=== PATIENT | female | born 1945 | race Caucasian/White ===

== ENCOUNTER → 2017-01-06 | Outpatient (CLI) | payer OTHER, MEDICARE | LOC: FIMAGING 12:59 | PROVIDERS: ATTEND Physical Medicine & Rehabilitation Pain Medicine | DX: M51.36 Other intervertebral disc degeneration, lumbar region (principal); M12.88 Other specific arthropathies, not elsewhere classified, other specified site; M43.16 Spondylolisthesis, lumbar region; M48.06 Spinal stenosis, lumbar region; M99.73 Connective tissue and disc stenosis of intervertebral foramina of lumbar region ==

== ENCOUNTER → 2017-11-10 | Outpatient (CLI) | payer OTHER, MEDICARE | LOC: BMCIMAGING 09:38 | PROVIDERS: ATTEND Internal Medicine | DX: R05 Cough (principal); R09.82 Postnasal drip; R91.8 Other nonspecific abnormal finding of lung field ==

== ENCOUNTER 2017-11-12 00:17 | Emergency (ER) | payer OTHER, MEDICARE ==
[2017-11-12 00:22] VITALS: RESP 16
--- NOTE | 2017-11-12 00:29 | CPEKG ---
Heart Rate: 63 RR Interval: 952 P-R Interval: 136 QRSD Interval: 68 QT Interval: 424 QTC Interval: 435 P Angel [place]: 53 QRS [place]: 65 T Wave [place]: 64 EKG Severity - NORMAL ECG - EKG Impression: SINUS RHYTHM Electronically Signed By: Griselda Kendrick 13-Nov-2017 05:52:47
[2017-11-12 00:43] LABS: PLATELET COUNT 147 10^3/uL (150-400)
--- NOTE | 2017-11-12 01:22 | EDPHY ---
H & P Stated Complaint: possible seizure Time Seen by Provider: 11/12/17 00:59 HPI/ROS: HPI The patient presents with concern for possible seizure. The patient went to bed at about 9:00 p.m. Tonight and that 11:00 p.m. Her heard her making a whimpering noise. He then saw her flailing and shaking her upper extremities and legs in a non rhythmic manner. This lasted for about 3-4 minutes, then she seems sleepy for several minutes and then return to her usual self. She did not have any oral trauma or incontinence. She had no prior history of seizure. She has been more sleepy than usual over the last several weeks, sleeping up to 18 hr a day. Her fluoxetine dose was increased yesterday because of this from 40 mg to 60 mg. She has also had a cough for the last 2 weeks and is taking a course of Keflex for URI. She has also been taking some sort of decongestant or antihistamine, her does not recall the name. She had a chest x-ray performed which was normal. She has not had any traumatic injuries.. REVIEW OF SYSTEMS Constitutional: No fever, no chills. Eyes: No discharge. ENT: No sore throat. Cardiovascular: No chest pain, no palpitations. Respiratory: No cough, no shortness of breath. Gastrointestinal: No abdominal pain, no vomiting. Genitourinary: No hematuria. Musculoskeletal: No back pain. Skin: No rashes. Neurological: No headache. PMHx: History of Alzheimer's dementia, depression Soc Hx: Lives at home with her PHYSICAL General Appearance: Alert, no distress Eyes: Pupils equal and round no pallor or injection ENT, Mouth: Mucous membranes moist Respiratory: There are no retractions, lungs are clear to auscultation Cardiovascular: Regular rate and rhythm Gastrointestinal: Abdomen is soft and non-tender, no masses, bowel sounds normal Neurological: Alert, cranial nerves 2-12 intact, 5/5 strength in upper and lower extremities which is symmetric Skin: Warm and dry, no rashes Musculoskeletal: Neck is supple non tender Extremities: symmetrical, full range of motion Psychiatric: There is no agitation Source: Patient, EMS Exam Limitations: Physical impairment - Personal History Current Tetanus Diphtheria and Acellular Pertussis (TDAP): Yes - Medical/Surgical History Hx Asthma: No Hx Chronic Respiratory Disease: No Hx Diabetes: No Hx Cardiac Disease: No Hx Renal Disease: No Hx Cirrhosis: No Hx Alcoholism: No Hx HIV/AIDS: No Hx Splenectomy or Spleen Trauma: No Other PMH: PMH:Alzheimers, BREAST CANCER, HERNIATED DISC,. PSH: C-SECTIONS, BUNIONECTOMIES - Social History Smoking Status: Never smoked Constitutional: Initial Vital Signs Temperature (C) 36.8 C 11/12/17 00:20 Heart Rate 63 11/12/17 00:20 Respiratory Rate 16 11/12/17 00:20 Blood Pressure 145/86 H 11/12/17 00:20 O2 Sat (%) 94 11/12/17 00:20 O2 Delivery Mode Room Air Allergies/Adverse Reactions: No Known Allergies Allergy (Unverified 11/12/17 00:19) Home Medications: Medication Instructions Recorded B6 02/27/10 CALCIUM CITRATE 02/27/10 FLAXSEED OIL 02/27/10 Gluc Ramirez/Chondro 02/27/10 Simvastatin 02/27/10 VITAMIN D 02/27/10 Aricept 06/17/16 Cephalexin [Keflex (RX)] 500 mg PO TID #30 cap 06/17/16 Namenda 10 mg 06/17/16 Prozac 10 MG (*) 06/17/16 Medical Decision Making - Diagnostics EKG Interpretation: EKG: Complete interpretation has been separately recorded in the [facility] archive. Summary impression: Normal sinus rhythm Imaging Results: CT scan of head without contrast demonstrates no acute intracranial pathology, discussed with the radiologist flight operation coordinator. Chest x-ray two views shows no obvious infiltrate, unchanged from prior x-ray dated a few days ago. This was interpreted by me, radiology interpretation is pending. Imaging: Discussed imaging studies w/ call manager Radiologist, I viewed and interpreted images myself Differential Diagnosis: This is a 72-year-old female who has Alzheimer's dementia, depression, who lives at home with her , who is brought in by ambulance for a seizure like episode which occurred at 11:00 p.m. Tonight, lasting for several minutes, now resolved. There was a very brief period after this episode where she was tired, however recovered fairly quickly. This shaking activity was not rhythmic , though the patient was not responsive during it. She is on some new medications, however these are unlikely to cause seizures. She could have electrolyte disturbance, intracranial hemorrhage, possible infection. In the emergency department, I met the paramedics at the bedside to obtain their report. The patient seems to be at her baseline. The patient's arrived and I interviewed him separately. Labs were checked and were relatively unremarkable except for a transaminitis of unclear significance. CT scan of head was normal. Chest x-ray looked unchanged from previous. The patient had no ongoing episodes. UA was also normal. She did receive a fluid bolus for presumed volume depletion. I have offered her admission to the hospital, however she strongly prefers to go home and given her Alzheimer's dementia I feel it may be best for her to be in a familiar environment during this time. She is followed by primary care and Neurology and I have advised her to follow up with both of their providers. She could have possibly had a seizure. Her also reports that she occasionally has very vivid dreams, does sleep walk at times and this could be somewhat related. - Data Points Laboratory Results: Laboratory Results 11/12/17 00:20 11/12/17 00:20 11/12/17 11/12/17 11/12/17 03:11 00:20 00:20 WBC 4.09 10^3/uL 10^3/uL (3.80-9.50) RBC 4.37 10^6/uL 10^6/uL (4.18-5.33) Hgb 13.5 g/dL g/dL (12.6-16.3) Hct 41.2 % % (38.0-47.0) MCV 94.3 fL fL (81.5-99.8) MCH 30.9 pg pg (27.9-34.1) MCHC 32.8 g/dL g/dL (32.4-36.7) RDW 12.2 % % (11.5-15.2) Plt Count 147 10^3/uL L 10^3/uL (150-400) MPV 12.4 fL H fL (8.7-11.7) Neut % (Auto) 57.8 % % (39.3-74.2) Lymph % (Auto) 29.3 % % (15.0-45.0) Mobile % (Auto) 11.0 % % (4.5-13.0) Eos % (Auto) 1.2 % % (0.6-7.6) Baso % (Auto) 0.2 % L % (0.3-1.7) Nucleat RBC Rel Count 0.0 % % (0.0-0.2) Absolute Neuts (auto) 2.36 10^3/uL 10^3/uL (1.70-6.50) Absolute Lymphs (auto) 1.20 10^3/uL 10^3/uL (1.00-3.00) Absolute Monos (auto) 0.45 10^3/uL 10^3/uL (0.30-0.80) Absolute Eos (auto) 0.05 10^3/uL 10^3/uL (0.03-0.40) Absolute Basos (auto) 0.01 10^3/uL L 10^3/uL (0.02-0.10) Absolute Nucleated RBC 0.00 10^3/uL 10^3/uL (0-0.01) Immature Gran % 0.5 % % (0.0-1.1) Immature Gran # 0.02 10^3/uL 10^3/uL (0.00-0.10) Sodium 141 mEq/L mEq/L (135-145) Potassium 4.5 mEq/L mEq/L (3.5-5.2) Chloride 103 mEq/L mEq/L (97-110) Carbon Dioxide 29 mEq/l mEq/l (22-31) Anion Gap 9 mEq/L mEq/L (8-16) BUN 20 mg/dL mg/dL (7-23) Creatinine 0.8 mg/dL mg/dL (0.6-1.0) Estimated GFR > 60 Glucose 83 mg/dL mg/dL (70-100) Calcium 8.1 mg/dL L mg/dL (8.5-10.4) Total Bilirubin 0.3 mg/dL mg/dL (0.1-1.4) AST 65 IU/L H IU/L (14-46) ALT 57 IU/L H IU/L (9-52) Alkaline Phosphatase 65 IU/L IU/L (38-126) Total Protein 5.6 g/dL L g/dL (6.3-8.2) Albumin 3.5 g/dL g/dL (3.5-5.0) Urine Color YELLOW Urine Appearance CLEAR Urine pH 6.0 (5.0-7.5) Ur Specific Jakin 1.014 (1.002-1.030) Urine Protein NEGATIVE (NEGATIVE) Urine Ketones NEGATIVE (NEGATIVE) Urine Blood NEGATIVE (NEGATIVE) Urine Nitrate NEGATIVE (NEGATIVE) Urine Bilirubin NEGATIVE (NEGATIVE) Urine Urobilinogen NEGATIVE EU EU (0.2-1.0) Ur Leukocyte Esterase NEGATIVE (NEGATIVE) Urine Glucose NEGATIVE (NEGATIVE) Medications Given: Discontinued Medications Sodium Chloride (Ns) 1,000 mls @ 0 mls/hr IV ONCE ONE; Wide Open PRN Reason: Protocol Stop: 11/12/17 02:03 Last Admin: 11/12/17 02:04 Dose: 1,000 mls Departure - Departure Disposition: Home, Routine, Self-Care Clinical Impression: Transaminitis, Seizure-like activity Condition: Good Instructions: New-Onset Seizure in Adults (ED) Additional Instructions: You may have had a seizure today. Because of this, make sure to drink plenty of fluids and get rest. You should avoid the antihistamine use been taking if possible. Please follow-up with Dr. Owens. If you have another seizure, you need to come back to the emergency department Referrals: Tiffanie Flores MD [Primary Care Provider] - As per Instructions Beck Owens MD [Medical Doctor] - As per Instructions
[2017-11-12] MEDS ORDERED: NS 1,000 ML IV ONE (02:02)
[2017-11-12 04:07] VITALS: BP 125/80; PULSE 68; TEMP 98.2; O2SAT 96
== END 2017-11-12 04:06 | disposition home or self-care (01) ==
LOC: EDUNIT#
DX: R56.9 Unspecified convulsions (principal); R74.0 Nonspecific elevation of levels of transaminase and lactic acid dehydrogenase [LDH]; G30.9 Alzheimer's disease, unspecified; E86.9 Volume depletion, unspecified; Z85.3 Personal history of malignant neoplasm of breast

== ENCOUNTER → 2018-04-16 | Outpatient (CLI) | payer OTHER, MEDICARE | LOC: FIMAGING 13:11 | PROVIDERS: ATTEND Internal Medicine | DX: Z12.31 Encounter for screening mammogram for malignant neoplasm of breast (principal); Z85.3 Personal history of malignant neoplasm of breast; Z13.820 Encounter for screening for osteoporosis; Z78.0 Asymptomatic menopausal state; M85.88 Other specified disorders of bone density and structure, other site ==

== ENCOUNTER → 2018-10-11 | Outpatient (CLI) | payer OTHER | LOC: BMCIMAGING 11:02 | PROVIDERS: ATTEND Internal Medicine | DX: Z11.1 Encounter for screening for respiratory tuberculosis (principal); F03.90 Unspecified dementia, unspecified severity, without behavioral disturbance, psychotic disturbance, mood disturbance, and anxiety; I70.0 Atherosclerosis of aorta ==

== ENCOUNTER 2018-11-12 19:27 | Inpatient (IN) | payer OTHER ==
--- NOTE | 2018-11-12 19:50 | EDPHY ---
General Time Seen by Provider: 11/12/18 19:50 Narrative: CLINICAL IMPRESSION: Fever, pneumonia ASSESSMENT/PLAN: Patient is a 73-year-old female with late stage Alzheimer's present with her , presents with shaking chills and fever. Patient with mild temperature on arrival, also noted to be mildly tachycardic. Minimal history obtained from patient secondary to late stage Alzheimer's, history obtained from . An ECG was obtained which revealed sinus rhythm at a rate of 91, nonspecific ST changes; reviewed by myself and Dr. Garcias. She was noted to be mildly tachycardic on arrival, this normalized after 1 L of normal saline. Lactate was 1.6, no evidence of sepsis. CBC revealed leukocytosis of 14.5. Metabolic panel is grossly normal. Influenza swab negative. Chest x-ray reveals new right lower lobe pneumonia. Blood cultures were obtained, urinalysis has been ordered however still pending. Findings today suggestive of pneumonia, patient was given Rocephin and azithromycin in the emergency department. She will be admitted to the hospitalist service for further observation and management. I spoke directly with Dr. Figueroa who will be the admitting physician. The patient remained hemodynamically stable, her oxygen saturation remained in the low 90s without evidence of hypoxia or respiratory distress. Prior to transfer to the floor, the patient is comfortable appearing, no acute distress. DIFFERENTIAL DX: Adult fever including but not limited to viral syndromes including influenza, urinary tract infection, pneumonia and sepsis. ED COURSE: 1999: Case discussed with Dr. Garcias. 2002: Urine culture from 11/05/2018 reviewed, no significant growth. 2231: Still awaiting call back from the hospitalist service for admission. CHIEF COMPLAINT: Shaking chills, fever HPI: Patient is a 73-year-old female with late stage Alzheimer's present with her , presents with shaking chills and fever. Patient resides at [facility], saw her yesterday and she was at her baseline. Per nursing staff the patient had a restless night of sleep, she took a nap today and reportedly was doing well. He came to the facility around 5:00 p.m. When she started shaking suddenly at dinner. They took her temperature and she was noted to have a fever. Patient has been denies any recent runny nose, congestion or cough. He does endorse that she was diagnosed with a urinary tract infection last Thursday and has completed a course of antibiotic therapy. She has not been complaining of any abdominal pain, he is unsure of her bowel movements status. He reports that she is otherwise normally very healthy and active despite her late stage Alzheimer's. PMH: Late stage Alzheimer's, hyperlipidemia Family History: Noncontributory Social History: Denies REVIEW OF SYSTEMS: All other systems negative Constitutional: Fever, shaking chills. Review of system is limited secondary to late stage Alzheimer's. PHYSICAL EXAM: General Appearance: Elderly, shaking. HENT: Normocephalic, atraumatic. Bilateral external ears are normal. Bilateral tympanic membranes are normal with pearly mcwilliams reflex. Nares are clear, mucosa is pink. Oropharynx is clear, uvula is midline. There is no tonsillar enlargement or exudate. The dentition is normal. Eyes: PERRLA, EOMI intact. Conjunctiva pink, no pallor or injection. Neck: Supple, nontender, no lymphadenopathy, no midline pain, FROM, no meningismus. Respiratory: There are no retractions, lungs are clear to auscultation. Cardiac: Mild tachycardia, no murmurs or gallops. Gastrointestinal: Abdomen is soft, nontender, bowel sounds normal, no masses/ hernia, no rigidity, guarding or focal peritoneal findings. Neurological: Alert and oriented x 3, CN 2-12 grossly intact, normal gait no ataxia, DTR's intact, normal sensation and strength. Skin: Warm, dry, no rashes, no nodules on palpation. Musculoskeletal: Extremities are symmetrical, full range of motion, no tenderness, deformity, swelling, or erythema. Psychiatric: Patient is alert to name, mentation at baseline per , there is no agitation. MEDICAL DECISION MAKING: Patient was seen independently. Secondary supervising physician at time of evaluation was Dr. Garcias. Diagnosis: Fever. New, requires workup Summary: See Assessment and Plan for summary of ED visit Clinical lab tests: ordered / reviewed. Independent visualization of images, tracing, or specimens: Yes. Decision to obtain medical records or history from someone other than the patient: Yes, Review / Summarize previous medical records: Yes Discussed patient with another provider: Yes, Dr. Garcias Patient Progress: Stable. Admit. - Diagnostics Imaging Results: Imaging Impressions Chest X-Ray 11/12/18 19:51 Impression: Right lower lobe infiltrate, new, compatible with pneumonia. - History Smoking Status: Never smoked - Objective Vital Signs: Initial Vital Signs Temperature (C) 38.1 C 11/12/18 19:34 Heart Rate 102 H 11/12/18 19:34 Respiratory Rate 16 11/12/18 19:34 Blood Pressure 130/84 H 11/12/18 19:34 O2 Sat (%) 92 11/12/18 19:34 O2 Delivery Mode Room Air Allergies/Adverse Reactions: No Known Allergies Allergy (Unverified 11/12/17 00:19) Home Medications: Medication Instructions Recorded RX: Simvastatin 40 mg PO HS 02/27/10 Donepezil HCl [Aricept 5 MG (*)] 5 mg PO HS 06/17/16 FLUoxetine [Prozac 20 MG (*)] 20 mg PO DAILY 06/17/16 Solifenacin Succinate [Vesicare 5 5 mg PO DAILY 11/12/18 MG (*)] Laboratory Results: Laboratory Results 11/12/18 21:45 11/12/18 20:25 11/12/18 11/12/18 11/12/18 21:45 21:45 20:25 WBC 14.54 10^3/uL H 10^3/uL (3.80-9.50) RBC 3.96 10^6/uL L 10^6/uL (4.18-5.33) Hgb 12.6 g/dL g/dL (12.6-16.3) Hct 37.4 % L % (38.0-47.0) MCV 94.4 fL fL (81.5-99.8) MCH 31.8 pg pg (27.9-34.1) MCHC 33.7 g/dL g/dL (32.4-36.7) RDW 12.6 % % (11.5-15.2) Plt Count 145 10^3/uL L 10^3/uL (150-400) MPV 13.0 fL H fL (8.7-11.7) Neut % (Auto) 85.0 % H % (39.3-74.2) Lymph % (Auto) 4.7 % L % (15.0-45.0) Rains % (Auto) 8.0 % % (4.5-13.0) Eos % (Auto) 1.7 % % (0.6-7.6) Baso % (Auto) 0.3 % % (0.3-1.7) Nucleat RBC Rel Count 0.0 % % (0.0-0.2) Absolute Neuts (auto) 12.36 10^3/uL H 10^3/uL (1.70-6.50) Absolute Lymphs (auto) 0.69 10^3/uL L 10^3/uL (1.00-3.00) Absolute Monos (auto) 1.16 10^3/uL H 10^3/uL (0.30-0.80) Absolute Eos (auto) 0.24 10^3/uL 10^3/uL (0.03-0.40) Absolute Basos (auto) 0.04 10^3/uL 10^3/uL (0.02-0.10) Absolute Nucleated RBC 0.00 10^3/uL 10^3/uL (0-0.01) Immature Gran % 0.3 % % (0.0-1.1) Immature Gran # 0.05 10^3/uL 10^3/uL (0.00-0.10) PT 13.0 SEC SEC (12.0-15.0) INR 1.02 (0.83-1.16) APTT 26.0 SEC SEC (23.0-38.0) VBG Lactic Acid Sodium Potassium Chloride Carbon Dioxide Anion Gap BUN Creatinine Estimated GFR Glucose Calcium Total Bilirubin Procalcitonin 0.05 ng/mL ng/mL (0.02-0.10) 11/12/18 11/12/18 11/12/18 20:25 20:25 20:25 WBC REJ RBC Not Reported Hgb Not Reported Hct Not Reported MCV Not Reported MCH Not Reported MCHC Not Reported RDW Not Reported Plt Count Not Reported MPV Not Reported Neut % (Auto) Not Reported Lymph % (Auto) Not Reported Rains % (Auto) Not Reported Eos % (Auto) Not Reported Baso % (Auto) Not Reported Nucleat RBC Rel Count Not Reported Absolute Neuts (auto) Not Reported Absolute Lymphs (auto) Not Reported Absolute Monos (auto) Not Reported Absolute Eos (auto) Not Reported Absolute Basos (auto) Not Reported Absolute Nucleated RBC Not Reported Immature Gran % Not Reported Immature Gran # Not Reported PT REJ INR REJ APTT REJ VBG Lactic Acid 1.6 mmol/L mmol/L (0.7-2.1) Sodium Potassium Chloride Carbon Dioxide Anion Gap BUN Creatinine Estimated GFR Glucose Calcium Total Bilirubin Procalcitonin 11/12/18 20:25 WBC RBC Hgb Hct MCV MCH MCHC RDW Plt Count MPV Neut % (Auto) Lymph % (Auto) Rains % (Auto) Eos % (Auto) Baso % (Auto) Nucleat RBC Rel Count Absolute Neuts (auto) Absolute Lymphs (auto) Absolute Monos (auto) Absolute Eos (auto) Absolute Basos (auto) Absolute Nucleated RBC Immature Gran % Immature Gran # PT INR APTT VBG Lactic Acid Sodium 136 mEq/L mEq/L (135-145) Potassium 3.9 mEq/L mEq/L (3.5-5.2) Chloride 103 mEq/L mEq/L (97-110) Carbon Dioxide 24 mEq/l mEq/l (22-31) Anion Gap 9 mEq/L mEq/L (6-14) BUN 20 mg/dL mg/dL (7-23) Creatinine 0.9 mg/dL mg/dL (0.6-1.0) Estimated GFR > 60 Glucose 137 mg/dL H mg/dL (70-100) Calcium 9.1 mg/dL mg/dL (8.5-10.4) Total Bilirubin 0.6 mg/dL mg/dL (0.1-1.4) Procalcitonin Medications Given: Sodium Chloride (Ns) 1,000 mls @ 75 mls/hr IV CONT GIOVANNY Stop: 05/11/19 22:59 Last Admin: 11/13/18 00:32 Dose: 1,000 mls Discontinued Medications Acetaminophen (Tylenol) 650 mg PO EDNOW ONE Stop: 11/12/18 21:03 Last Admin: 11/12/18 21:04 Dose: 650 mg Azithromycin 500 mg/ Sodium (Chloride) 255 mls @ 255 mls/hr IV EDNOW ONE PRN Reason: Protocol Stop: 11/12/18 21:51 Last Admin: 11/12/18 21:34 Dose: 255 mls Ceftriaxone Sodium/Dextrose (Rocephin 1 Gm (Premix)) 50 mls @ 100 mls/hr IV EDNOW ONE PRN Reason: Protocol Stop: 11/12/18 21:21 Last Admin: 11/12/18 21:00 Dose: 50 mls Sodium Chloride (Ns) 1,000 mls @ 0 mls/hr IV ONCE ONE PRN Reason: Wide Open Stop: 11/12/18 20:55 Last Admin: 11/12/18 20:58 Dose: 1,000 mls Departure - Departure Disposition: [facility] Inpatient Acute Clinical Impression: Pneumonia Qualifiers: Pneumonia type: due to unspecified organism Laterality: right Lung location: unspecified part of lung Qualified Code(s): J18.9 - Pneumonia, unspecified organism Condition: Fair
[2018-11-12] MEDS ORDERED: AZITHROMYCIN IV 500 MG in NS 250 ML IV ONE (20:52)
[2018-11-12] MEDS ORDERED: NS 1,000 ML IV ONE (20:54)
[2018-11-12] MEDS ORDERED: ACETAMINOPHEN 325 MG TAB PO ONE (21:02)
[2018-11-12 22:05] LABS: PLATELET COUNT 145 10^3/uL (150-400)
[2018-11-12 22:08] LABS: INR 1.02 (0.83-1.16)
[2018-11-12] MEDS ORDERED: ONDANSETRON DISINTEGRATING 4 MG TAB PO PRN (22:55)
[2018-11-12] MEDS ORDERED: ONDANSETRON 4 MG/2 ML VIAL IVP PRN (22:55)
[2018-11-12] MEDS ORDERED: ACETAMINOPHEN 325 MG TAB PO PRN (22:55)
[2018-11-12] MEDS ORDERED: NS 1,000 ML IV SCH (23:00)
--- NOTE | 2018-11-13 02:38 | PDGENHP ---
History and Physical - Chief Complaint rigors, fever - History of Present Illness Source - Patient asleep and with history of advanced dementia. at bedside and provides history. EMR reviewed and case discussed with ED provider. HPI - Pleasant 73 yo F with pmhx significant for dementia, depression, HLD presents to the ED from [place]. reports that she went to visit the patient and she was found to have shaking chills. Temperature reported from [facility] was also noted found to be elevated. Hold patient's reported to have been in her usual state of health. No known cough, rhinorrhea, complaints of nausea vomiting abdominal pain diarrhea or dysuria. Of note reports that patient is due to complete day 5 of 5 for antibiotics to treat a UTI. History Information - Allergies/Home Medication List Allergies/Adverse Reactions: No Known Allergies Allergy (Unverified 11/12/17 00:19) Home Medications: Simvastatin 40 mg PO HS 02/27/10 [Last Taken 11/12/18] Donepezil HCl [Aricept 5 MG (*)] 5 mg PO HS 06/17/16 [Last Taken 11/12/18] FLUoxetine [Prozac 20 MG (*)] 20 mg PO DAILY 06/17/16 [Last Taken 11/12/18] Solifenacin Succinate [Vesicare 5 MG (*)] 5 mg PO DAILY 11/12/18 [Last Taken ] I have personally reviewed and updated: family history, medical history, social history, surgical history - Past Medical History Additional medical history: Dementia. Depression. HLD. Overactive bladder - Surgical History Additional surgical history: . Bunionectomy - Family History Additional family history: Negative for dementia - Social History Smoking Status: Never smoked Alcohol Use: None Drug Use: None Additional social history: Patient is resides at [facility]. Cor status-limited. Continue supportive treatment. No CPR no intubation. Review of Systems Review of Systems: ROS: 10pt was reviewed & negative except for what was stated in HPI & below Physical Exam Physical Exam: Selected Entries 11/12/18 19:34 Blood Pressure Automatic Method Heart Rate 102 H Respiratory 16 Rate O2 Sat (%) 92 Temperature (C) 38.1 C Blood Pressure 130/84 H Mean Arterial 99 Pressure (MAP) O2 Delivery Room Air Mode Temperature Oral Source Temp Pulse Resp BP Pulse Ox 37.1 C 79 16 115/61 93 11/12/18 23:52 11/12/18 23:52 11/12/18 23:52 11/12/18 23:52 11/12/18 23:52 O2 (L/minute) 1 Constitutional: no apparent distress, appears nourished, not in pain, chronically ill appearing, No uncomfortable Eyes: other (Limited exam is patient keeps her eyes closed from majority of the interview. No apparent scleral icterus, conjunctival injection pupils appear equal.) Ears, Nose, Mouth, Throat: other (No nasal discharge.) Cardiovascular: regular rate and rhythym, no murmur, rub, or gallop, No edema Peripheral Pulses: 2+: dorsalis-pedis (R), dorsalis-pedis (L) Respiratory: no respiratory distress, no rales or rhonchi, clear to auscultation , reduced air movement (Decreased inspiratory effort.) Gastrointestinal: normoactive bowel sounds, soft, non-tender abdomen, no palpable masses, No distension Genitourinary: no bladder tenderness, No puri in urethra Skin: warm, normal color, no rashes or abrasions Musculoskeletal: other (limited exam as patient lays asleep for majority of interview.) Neurologic: other (Grossly nonfocal. Patient is able to move her extremities while lying in bed. She is not able to follow any commands at this time.) Psychiatric: poor memory, No agitated Lab Data & Imaging Review 11/12/18 21:45 11/12/18 20:25 WBC 14.54 10^3/uL (3.80-9.50) H 11/12/18 21:45 RBC 3.96 10^6/uL (4.18-5.33) L 11/12/18 21:45 Hgb 12.6 g/dL (12.6-16.3) 11/12/18 21:45 Hct 37.4 % (38.0-47.0) L 11/12/18 21:45 MCV 94.4 fL (81.5-99.8) 11/12/18 21:45 MCH 31.8 pg (27.9-34.1) 11/12/18 21:45 MCHC 33.7 g/dL (32.4-36.7) 11/12/18 21:45 RDW 12.6 % (11.5-15.2) 11/12/18 21:45 Plt Count 145 10^3/uL (150-400) L 11/12/18 21:45 MPV 13.0 fL (8.7-11.7) H 11/12/18 21:45 Neut % (Auto) 85.0 % (39.3-74.2) H 11/12/18 21:45 Lymph % (Auto) 4.7 % (15.0-45.0) L 11/12/18 21:45 [place] % (Auto) 8.0 % (4.5-13.0) 11/12/18 21:45 Eos % (Auto) 1.7 % (0.6-7.6) 11/12/18 21:45 Baso % (Auto) 0.3 % (0.3-1.7) 11/12/18 21:45 Nucleat RBC Rel Count 0.0 % (0.0-0.2) 11/12/18 21:45 Absolute Neuts (auto) 12.36 10^3/uL (1.70-6.50) H 11/12/18 21:45 Absolute Lymphs (auto) 0.69 10^3/uL (1.00-3.00) L 11/12/18 21:45 Absolute Monos (auto) 1.16 10^3/uL (0.30-0.80) H 11/12/18 21:45 Absolute Eos (auto) 0.24 10^3/uL (0.03-0.40) 11/12/18 21:45 Absolute Basos (auto) 0.04 10^3/uL (0.02-0.10) 11/12/18 21:45 Absolute Nucleated RBC 0.00 10^3/uL (0-0.01) 11/12/18 21:45 Immature Gran % 0.3 % (0.0-1.1) 11/12/18 21:45 Immature Gran # 0.05 10^3/uL (0.00-0.10) 11/12/18 21:45 PT 13.0 SEC (12.0-15.0) 11/12/18 21:45 INR 1.02 (0.83-1.16) 11/12/18 21:45 APTT 26.0 SEC (23.0-38.0) 11/12/18 21:45 VBG Lactic Acid 1.6 mmol/L (0.7-2.1) 11/12/18 20:25 Sodium 136 mEq/L (135-145) 11/12/18 20:25 Potassium 3.9 mEq/L (3.5-5.2) 11/12/18 20:25 Chloride 103 mEq/L (97-110) 11/12/18 20:25 Carbon Dioxide 24 mEq/l (22-31) 11/12/18 20:25 Anion Gap 9 mEq/L (6-14) 11/12/18 20:25 BUN 20 mg/dL (7-23) 11/12/18 20:25 Creatinine 0.9 mg/dL (0.6-1.0) 11/12/18 20:25 Estimated GFR > 60 11/12/18 20:25 Glucose 137 mg/dL (70-100) H 11/12/18 20:25 Calcium 9.1 mg/dL (8.5-10.4) 11/12/18 20:25 Total Bilirubin 0.6 mg/dL (0.1-1.4) 11/12/18 20:25 Procalcitonin 0.05 ng/mL (0.02-0.10) 11/12/18 20:25 Nasal Influenza A PCR NEGATIVE FOR FLU A (NEGATIVE) 11/12/18 23:10 Nasal Influenza B PCR NEGATIVE FOR FLU B (NEGATIVE) 11/12/18 23:10 Imaging Review: PA and lateral chest. Clinical History: Meets sepsis criteria, suspected infection Comparison Study: October 11, 2018. Findings: Focal infiltrate in the right lower lobe is compatible with pneumonia , new from prior study. Left lung is clear. Heart size is mildly prominent, stable. Surgical clips are identified in the left axilla.. Impression: Right lower lobe infiltrate, new, compatible with pneumonia. Dictated By: Alban Aponte MD Chest X-Ray results: infiltrate Visualized and Interpreted imaging results: Yes EKG additional interpertation: NSR in the 90s. Some motion artifact is present. No acute ST changes. Some nonspecific T-wave changes in the precordial leads. QTC 498. Assessment & Plan Assessment: Angelo 73 yo F with pmhx significant for dementia, depression, HLD presents to the ED from [place]. reports that she went to visit the patient and she was found to have shaking chills. #Right lower lobe Pneumonia (Acute) - patient without any respiratory symptoms. The flu A/B is negative. Continue azithromycin Rocephin at this time. Blood cultures x2 obtained. See below. #Sepsis without acute organ dysfunction - patient qualifies with leukocytosis, tachycardia, fever upon arrival to the ED. She has normal lactic acid and no elevation in her bilirubin. Patient without any hypoxia. Blood cultures x2 are pending. Continue azithromycin Rocephin as noted above. Additionally will check a UA once patient is able to provide a sample to ensure adequate treatment of her UTI. #Dementia - continue to an episode. #Depression - continue fluoxetine. #HLD - med rec list statin will await final review by pharmacy. FEN - IV fluids overnight. Will and try to encourage oral hydration tomorrow. Electrolytes adequate at this time continue monitor. Diet as tolerated. PPX-SCDs. Heparin. Cor status-limited. No CPR no intubation. Disposition-patient admitted observation status on the [facility] floor for continued monitoring overnight. S patient continues to show improvement and repeat labs are appropriate anticipate patient should be able to return back to [place] tomorrow. This is consistent with patient's 's wishes as well given patient has significant difficulties adjusting to new surroundings he would like her back at [place] as soon as possible.
[2018-11-13 04:37] LABS: PLATELET COUNT 116 10^3/uL (150-400)
[2018-11-13] MEDS: HEPARIN 5,000 UNIT/0.5 ML INJ SC SCH ×3 (05:31→21:17)
--- NOTE | 2018-11-13 11:47 | ASMTCMCOM ---
CM Note CM Note Notes: Chart reviewed and plan of care discussed in am rounds. Patient admitted via ED after went to visit her at [place] and found her to have shaking chills. Currently being treated for UTI. In ED CXR reveals a RLL PNA> She was admitted for treatment/ Anticipate return to [place] when medically cleared. Plan: Return to assisted living at [place]. Date Signed: 11/13/2018 11:46 AM Electronically Signed By:Stella Lugo RN
--- NOTE | 2018-11-13 13:57 | HOSPPROG ---
Hospitalist Progress Note Assessment/Plan: #RLL pneumonia #Sepsis/SIRS criteria on admission #Dementia #Dehydration, resolving Plan: the pt lives at [place] and will d/c there once medically stable She is still on IVF. Given she met SIRS, I dont feel comfortable d/c today. Will stop IVF and do trial off IVF. Cont Rocephin and Azithromycin PT/OT change to inpatient Subjective: no cp or sob. feeling better. still on IV fluids Objective: Vital Signs Temp Pulse Resp BP Pulse Ox 36.6 C 78 17 115/91 H 95 11/13/18 08:00 11/13/18 11:34 11/13/18 11:34 11/13/18 11:34 11/13/18 11:34 Laboratory Results 11/13/18 04:22 11/13/18 04:22 11/12/18 11/13/18 11/14/18 05:59 05:59 05:59 Intake Total 1455 327 Output Total 250 Balance 1205 327 PT 13.0 SEC (12.0-15.0) 11/12/18 21:45 INR 1.02 (0.83-1.16) 11/12/18 21:45 - Physical Exam Constitutional: no apparent distress Eyes: PERRL, EOMI Ears, Nose, Mouth, Throat: moist mucous membranes Cardiovascular: regular rate and rhythym, No edema Respiratory: no respiratory distress, no rales or rhonchi Gastrointestinal: normoactive bowel sounds Skin: warm Musculoskeletal: generalized weakness Neurologic: AAOx3 Psychiatric: interacting appropriately Lymph, Heme, Immunologic: No petechiae ICD10 Worksheet Patient Problems: Problems Problem Status Onset Pneumonia Acute
--- NOTE | 2018-11-13 14:40 | CPEKG ---
Test Reason : OPEN Blood Pressure : / mmHG Vent. Rate : 091 BPM Atrial Rate : 091 BPM P-R Int : 146 ms QRS Dur : 074 ms QT Int : 404 ms P-R-T Axes : 052 054 064 degrees QTc Int : 498 ms Sinus rhythm Probable left atrial enlargement Nonspecific T abnormalities, lateral leads Borderline prolonged QT interval Confirmed by Adama Garcias ([id number]) on 11/13/2018 2:39:45 PM Referred By: Adama Garcias Confirmed By:Adama Garcias
--- NOTE | 2018-11-13 18:09 | PDMN ---
Medical Necessity Medical necessity: MCG: M160 sepsis and other febrile illness- A-2 days; pt with advanced dementia, depression , HLD, pt lives at [facility]- - found her with shaking chills, temp ., pt has been on abx for UTI per . pt meets sepsis criteria- leukocytosis, tachycardia, fever- suspect infection- CXR show RLL infiltrate compatible with pna- , new- status changed to INPT 11/13/18 for ongoing monitoring and tx of above- > 2 MN. IVF, IV abx.,
[2018-11-13] MEDS ORDERED: ATORVASTATIN CALCIUM 20 MG TAB PO SCH (21:00)
[2018-11-13] MEDS ORDERED: AZITHROMYCIN IV 500 MG in NS 250 ML IV SCH (21:00)
[2018-11-13] MEDS ORDERED: DONEPEZIL HCL 5 MG TAB PO SCH (21:00)
[2018-11-14 04:48] LABS: PLATELET COUNT 115 10^3/uL (150-400)
[2018-11-14] MEDS: HEPARIN 5,000 UNIT/0.5 ML INJ SC SCH (05:53)
[2018-11-14] MEDS ORDERED: SOLIFENACIN SUCCINATE 5 MG TAB PO SCH (09:00)
[2018-11-14] MEDS ORDERED: FLUoxetine 20 MG CAP PO SCH (09:00)
--- NOTE | 2018-11-14 12:00 | ASMTDCNOTE ---
Case Management Discharge Discharge Order Complete? Answers: Yes Patient to Obtain Answers: via Family Medications Transportation Arranged Answers: Family/Friends Transport will Pick (Date 11/14/2018 12:00 AM & Time) Faxed Final Orders Answers: Yes Agency/Facility Transfer Answers: Yes Report Printed & Faxed to Receiving Agency Family Notified Answers: Yes Notes: in the room Discharge Comments Notes: Pt to discharge today back to [facility]. Referral sent over via allscripts. in the room. RN given number for RN report at [facility]. No further CM needs noted at this time. CM available should needs change. Date Signed: 11/14/2018 11:59 AM Electronically Signed By:Jayne Horowitz
--- NOTE | 2018-11-14 12:01 | ASMTLACE ---
LACE Length of stay for Answers: 2 days current admission Acuity / Level of Answers: Yes Care: Did the patient have an inpatient admission? Comorbidities - select Answers: Dementia all that apply Other Notes: Pneumonia, UTI # of Emergency department Answers: 1-2 visits in the last 6 months Score: 10 Date Signed: 11/14/2018 12:01 PM Electronically Signed By:Jayne Horowitz
--- NOTE | 2018-11-14 12:09 | PDIAF ---
- Diagnosis Code Status: Limited Resuscitation - Medication Management Manager Architecture Antibiotics: Levaquin 750 mg qd Prison Antibiotic Stop Date: 11/18/18 Discharge Medications: electronically signed and located in the Home Medication List. - Orders Services needed: Home Snf Care Face to Face: I certify that this patient was under my care and that I had the required [id number] encounter meeting the encounter requirements on the discharge day. My findings support the fact that the patient is homebound as defined in Home Care Face to Face Continued: CMS Chapter 7 Medicare Benefits Manual 30.1.1 , The condition of the patient is such that there exists a normal inability to leave home and consequently, leaving home would require a considerable and taxing effort. Isolation Type: Droplet Isolation - Follow Up Care Current Providers and Referrals: Tiffanie Flores MD [Primary Care Provider] - As per Instructions
--- NOTE | 2018-11-14 12:33 | ASDISCHSUM ---
Discharge Information Plan Status:Assisted Living Medically Cleared to Leave:11/14/2018 Discharge Date:11/14/2018 CM D/C Disposition:Assisted Living ADT D/C Disposition: Projected Discharge Date:11/14/2018 11:00 AM Transportation at D/C:Family Discharge Delay Reason: Follow-Up Date:11/14/2018 11:00 AM Discharge Slot: Final Diagnosis:PNA, UTI Placement Information Referral Type:Assisted Living Residence Referral ID:[id number] Provider Name:Semaj [facility] [place] Address 1:[address] Address 2: City:[place] Selection Factors: State:[place] Patient Contact Information Contact Name:VIKI Relationship: Address:[address] Work Phone: City:[place] Alternate Phone: State/Zip Code:[place] [address] Email: Financial Information Financial Class:Medicare Advantage Plans Primary Plan Desc:[facility] [employer] Primary Plan Number:[id number] Secondary Plan Desc: Secondary Plan Number: Assessment Information LACE LACE Length of stay for Answers: 2 days current admission Acuity / Level of Answers: Yes Care: Did the patient have an inpatient admission? Comorbidities - select Answers: Dementia all that apply Other Notes: Pneumonia, UTI # of Emergency department Answers: 1-2 visits in the last 6 months Score: 10 Date Signed: 11/14/2018 12:01 PM Electronically Signed By:Jayne Horowitz [facility] CM Progress Note CM Note CM Note Notes: Chart reviewed and plan of care discussed in am rounds. Patient admitted via ED after went to visit her at [place] and found her to have shaking chills. Currently being treated for UTI. In ED CXR reveals a RLL PNA> She was admitted for treatment/ Anticipate return to [place] when medically cleared. Plan: Return to assisted living at [place]. Date Signed: 11/13/2018 11:46 AM Electronically Signed By:Stella Lugo RN Case Management Discharge Plan Note Case Management Discharge Discharge Order Complete? Answers: Yes Patient to Obtain Answers: via Family Medications Transportation Arranged Answers: Family/Friends Transport will Pick (Date 11/14/2018 12:00 AM & Time) Faxed Final Orders Answers: Yes Agency/Facility Transfer Answers: Yes Report Printed & Faxed to Receiving Agency Family Notified Answers: Yes Notes: in the room Discharge Comments Notes: Pt to discharge today back to [facility]. Referral sent over via [email or web address]. in the room. RN given number for RN report at [facility]. No further CM needs noted at this time. CM available should needs change. Date Signed: 11/14/2018 11:59 AM Electronically Signed By:Jayne Horowitz Intervention Information Intervention Type:*IM-Signed Date of Service:11/14/2018 12:32 PM Patient Type:Inpatient Staff Member:Jayne Horowitz Hours: Discipline:Milling Machine Operator Severity: Comment:
--- NOTE | 2018-11-14 12:45 | PDDCSUM ---
Discharge Summary Discharge Summary: Date of Admission: 11/12/2018 Date of Discharge: 11/14/2018 Consults: N/A Procedures: CXR Followup: PCP Hospital Course Problem List: #RLL pneumonia #Sepsis/SIRS criteria on admission #Dementia #Dehydration, resolving CXR on admission showing RLL PNA, patient started on Ceftriaxone, Azithromycin. Transitioned to Levaquin to complete 7 day course. Patient discharged in stable condition. Time spent on discharge was >35 minutes with >50% of time spent on patient education and counseling.
[2018-11-14] MEDS ORDERED: PNEUMOC 13-VAL CONJ-DIP CRM/PF 0.5 ML SYR (PREVNAR 13) IM ONE (13:13)
[2018-11-14 13:58] VITALS: BP 105/67
== END 2018-11-14 14:31 | DRG 871 ==
LOC: F1N 23:42 → OBSVTOIN 11-13 13:54
PROVIDERS: ADMIT Family Medicine; ATTEND Family Medicine
DX: A41.9 Sepsis, unspecified organism (principal); J18.1 Lobar pneumonia, unspecified organism; E86.0 Dehydration; G30.1 Alzheimer's disease with late onset; F02.80 Dementia in other diseases classified elsewhere, unspecified severity, without behavioral disturbance, psychotic disturbance, mood disturbance, and anxiety; Z23 Encounter for immunization
CPT/HCPCS: 96365; 97165-GO; G0009; G0378; J0456; J0696; J1644

== ENCOUNTER 2019-01-06 10:56 | Observation (INO) | payer OTHER ==
[2019-01-06 13:08] LABS: PLATELET COUNT 174 10^3/uL (150-400)
[2019-01-06] MEDS ORDERED: NS 1,000 ML IV ONE (14:01)
--- NOTE | 2019-01-06 14:46 | EDPHY ---
H & P Stated Complaint: 2 days fatigue/weakness falling similatr symptoms last month with PNA Time Seen by Provider: 01/06/19 11:07 HPI/ROS: CHIEF COMPLAINT: Increasing fatigue, falling sleep breakfast HISTORY OF PRESENT ILLNESS: This is a 73-year-old female with Alzheimer's, depression, and hyperlipidemia. She was admitted to this hospital at the end of October with a right lower lobe pneumonia. At that time she was treated with ceftriaxone and azithromycin. She was discharged home on oral Levaquin. She lives at [facility]. Her accompanies her today and gives me the history, as she is unable to provide any meaningful information. By his report, she has been falling asleep at the dinner table. He also mentions that she has had some intermittent limb jerking or spasming. Apparently she had a leg spasm that would not stop earlier today. He did not witness this. There is no report of cough or fever. There is no report of difficulty breathing. Her tells me that she appears to have been hallucinating today. This has not been a major component of her dementia. REVIEW OF SYSTEMS: A ten system review of systems was performed and is negative with the exception of the items mentioned in the HPI. Past medical history: 1. Pneumonia the, hospitalized at the end of October of this year 2. Alzheimer's. 3. Breast cancer every 5. HLD Past surgical history: 1. 2. Bunionectomy Social history: She resides at [facility]. She is and her is with her today. She has never used tobacco. No alcohol. She worked in landscape design. General Appearance: Sleeping but easily awakened. Vital signs reviewed. O2 94 % on room air. Respiratory rate 19. Temperature 36.5 degrees. Heart rate 70. Blood pressure 104/73. Eyes: Pupils equal and round, no conjunctival injection, no discharge. Anicteric. ENT, Mouth: Mucous membranes are slightly dry, no oropharyngeal erythema or edema. Neck: No lymphadenopathy, supple. Respiratory: Lungs are clear to auscultation; no wheezes, rales, or rhonchi. Cardiovascular: Regular rate and rhythm; no murmur, rub, or gallop. Gastrointestinal: Abdomen is soft and nontender, no masses or organomegaly, bowel sounds normal. Skin: Warm and dry, no rashes on exposed skin, normal color. Back: Nontender to palpation over the thoracolumbar spine. No CVAT. Extremities: No lower extremity edema, no calf tenderness or swelling. Neurological: Sleeping but easily awakened. Moving all four extremities easily and equally. KALLIE. EOMI. Facial expressions symmetric. Tongue midline. Psychiatric: Flat affect. - Personal History Current Tetanus Diphtheria and Acellular Pertussis (TDAP): Unsure - Medical/Surgical History Hx Asthma: No Hx Chronic Respiratory Disease: No Hx Diabetes: No Hx Cardiac Disease: No Hx Renal Disease: No Hx Cirrhosis: No Hx Alcoholism: No Hx HIV/AIDS: No Hx Splenectomy or Spleen Trauma: No Other PMH: PMH:Alzheimers, BREAST CANCER, HERNIATED DISC,. PSH: C-SECTIONS, BUNIONECTOMIES - Social History Smoking Status: Never smoked Constitutional: Initial Vital Signs Temperature (C) 36.5 C 01/06/19 11:01 Heart Rate 70 01/06/19 11:01 Respiratory Rate 19 01/06/19 11:01 Blood Pressure 104/73 01/06/19 11:01 O2 Sat (%) 94 01/06/19 11:01 O2 Delivery Mode Room Air Allergies/Adverse Reactions: No Known Allergies Allergy (Verified 01/06/19 10:59) Home Medications: Medication Instructions Recorded Donepezil HCl [Aricept 5 MG (*)] 5 mg PO DAILY 06/17/16 Solifenacin Succinate [Vesicare 5 5 mg PO DAILY 11/12/18 MG (*)] Acetaminophen [Tylenol ES 500 mg 500 mg PO DAILY 01/06/19 (*)] FLUoxetine [Prozac 20 MG (*)] 40 mg PO DAILY 01/06/19 Polyethylene Glycol 3350 [Miralax 17 gm PO BID 01/06/19 17 gm (*)] Medical Decision Making ED Course/Re-evaluation: Reported altered mental status in the 73-year-old female with a history of Alzheimer's. She was hospitalized with a pneumonia less than 2 months ago and at that time presented similarly. Chest x-ray shows right lower and right middle lobe infiltrate versus atelectasis, per the radiology report. She had a right lower lobe infiltrate at the time of her admission at the end of October. My interpretation, comparing films from her last hospitalization and today, is that there is little change between the 2. There is no elevation in her white blood cell count. Chemistries are normal. Urine is negative for signs of infection. It was my initial infection impression that this presentation is most consistent with an infection. She does not appear septic. She is not tachycardic or hypotensive. Her white blood cell count is normal at 6.2. She is not hypoxic and has not had a cough or fever. Most likely source, given the information available, is that this is pulmonary (chest x-ray report). She was treated less than 2 months ago for pneumonia. I have not found any other sites of infection such as a cellulitis. She will be admitted to the hospitalist service and treated with IV fluids and antibiotics. She is given ceftriaxone and azithromycin in the emergency department. She also received 1 L IV normal saline in the ED. She does have dry mucous membranes and I suspect that she is slightly dehydrated. It is certainly possible, given her low level of activity and recent fatigue, a that the chest x-ray findings do not represent an infiltrate, but rather atelectasis. Will obtain a procalcitonin to see if this help sort out the situation. Today's presentation could be evidence of disease progression (Alzheimer's). Recent fatigue and decreased level of alertness could be related to medications also. There was a report of limb spasms. I have not seen limb spasms at the time of my evaluations. She was serially evaluated during her stay in the department. She was asleep each time I would come to evaluate her. She remained easily arousable. She does have a limited code status. No compressions and no intubation. - Data Points Laboratory Results: Laboratory Results 01/06/19 11:20 01/06/19 11:20 Medications Given: Donepezil HCl (Aricept) 5 mg PO DAILY GIOVANNY Stop: 07/05/19 20:59 Last Admin: 01/07/19 09:32 Dose: 5 mg Enoxaparin Sodium (Lovenox) 40 mg SC DAILY GIOVANNY Stop: 07/06/19 08:59 Last Admin: 01/07/19 09:31 Dose: 40 mg Fluoxetine HCl (Prozac) 40 mg PO DAILY GIOVANNY Stop: 07/06/19 08:59 Last Admin: 01/07/19 09:32 Dose: 40 mg Discontinued Medications Donepezil HCl (Aricept) 5 mg PO HS GIOVANNY Stop: 07/05/19 20:59 Last Admin: 01/06/19 21:21 Dose: Not Given Sodium Chloride (Ns) 1,000 mls @ 0 mls/hr IV EDNOW ONE; Wide Open PRN Reason: Protocol Stop: 01/06/19 14:02 Last Admin: 01/06/19 14:27 Dose: 1,000 mls Azithromycin 500 mg/ Dextrose 255 mls @ 255 mls/hr IV EDNOW ONE PRN Reason: Protocol Stop: 01/06/19 15:54 Last Admin: 01/06/19 16:53 Dose: 255 mls Ceftriaxone Sodium/Dextrose (Rocephin 1 Gm (Premix)) 50 mls @ 100 mls/hr IV EDNOW ONE PRN Reason: Protocol Stop: 01/06/19 15:24 Last Admin: 01/06/19 15:09 Dose: 50 mls Sodium Chloride (Ns) 1,000 mls @ 100 mls/hr IV CONT GIOVANNY Stop: 01/07/19 01:29 Last Admin: 01/06/19 16:49 Dose: 1,000 mls Departure - Departure Disposition: [facility] Inpatient Acute Clinical Impression: Pneumonia Qualifiers: Pneumonia type: due to unspecified organism Laterality: right Lung location: middle lobe of lung Qualified Code(s): J18.1 - Lobar pneumonia, unspecified organism Fatigue Qualifiers: Fatigue type: other Qualified Code(s): R53.83 - Other fatigue Condition: Fair
[2019-01-06] MEDS ORDERED: AZITHROMYCIN IV 500 MG in D5W 250 ML IV ONE (14:55)
[2019-01-06] MEDS ORDERED: ONDANSETRON 4 MG/2 ML VIAL IVP PRN (15:17)
[2019-01-06] MEDS ORDERED: ACETAMINOPHEN 325 MG TAB PO PRN (15:17)
[2019-01-06] MEDS ORDERED: ONDANSETRON DISINTEGRATING 4 MG TAB PO PRN (15:17)
--- NOTE | 2019-01-06 15:29 | PDGENHP ---
<Mariia Jordan - Last Filed: 01/06/19 18:00> History and Physical - Chief Complaint Increasing fatigue - History of Present Illness This is a 73 y/o female w/hx of Alzheimer's, depression, hyperlipidemia presenting w/ 1-2 days worth of increasing fatigue and limb spasms. She was recently admitted in 10/2018 w/similar symptoms and was treated w/Azithromycin + Ceftriaxone for right lower lobe PNA and d/c'ed w/PO Levaquin which has since been completed. She is unable to discuss presenting symptoms d/t the severity of her dementia. Her is at bedside and has limited information to presenting symptoms. He reports they used to live together in the assisted- living section at [facility] but 2 months ago, she transferred to the memory care unit for disease progression. Yesterday and today, he and staff have noticed her falling asleep at breakfast and apparently, experiences limb spasms which he has not witnessed. He tells me she was hallucinating today. No new medications that he is aware of. No fever, chills, cough, CP, palpitations. No bowel concerns. She is being admitted for further work-up, monitoring and treatment. History Information - Allergies/Home Medication List Allergies/Adverse Reactions: No Known Allergies Allergy (Verified 01/06/19 10:59) Home Medications: Donepezil HCl [Aricept 5 MG (*)] 5 mg PO HS 06/17/16 [Last Taken 11/12/18] Solifenacin Succinate [Vesicare 5 MG (*)] 5 mg PO DAILY 11/12/18 [Last Taken ] Acetaminophen [Tylenol ES 500 mg (*)] 500 mg PO DAILY 01/06/19 [Last Taken Unknown] FLUoxetine [Prozac 20 MG (*)] 40 mg PO DAILY 01/06/19 [Last Taken Unknown] Polyethylene Glycol 3350 [Miralax 17 gm (*)] 17 gm PO BID 01/06/19 [Last Taken Unknown] I have personally reviewed and updated: family history, medical history, social history, surgical history - Past Medical History Additional medical history: Dementia. Depression. HLD. Overactive bladder - Surgical History Additional surgical history: . Bunionectomy - Family History Additional family history: Negative for dementia - Social History Smoking Status: Never smoked Alcohol Use: None Drug Use: None Additional social history: Patient is resides at [facility]. Cor status-limited. Continue supportive treatment. No CPR no intubation. Review of Systems Review of Systems: ROS: 10pt was reviewed & negative except for what was stated in HPI & below Physical Exam Physical Exam: Lab data and imaging were reviewed. Case discussed w/admitting physician, Dr. Josué Wiley. WBC: 6.11 H/H:12.8/39.2 Plt count: 174 Na: 136 K: 4.2 Cl: 102 Co2: 25 BUN/Cr: 16/0.7 UA: Negative Procalcitonin: 0.04 TSH: 2.070 CXR: Patchy atelectasis/infiltrate in the right middle and lower lobes. Mild cardiac enlargement. Compared to CXR 11/12/18 which showed right lower lobe infiltrate which was new and suggestive of PNA. Comparing both images, little change between the two. Temp Pulse Resp BP Pulse Ox 36.5 C 78 16 133/77 H 97 01/06/19 11:01 01/06/19 13:28 01/06/19 13:28 01/06/19 13:28 01/06/19 13:28 Constitutional: no apparent distress, appears nourished, not in pain Eyes: PERRL, anicteric sclera, EOMI Ears, Nose, Mouth, Throat: hearing normal, ears appear normal, no oral mucosal ulcers, dry mucous membranes Cardiovascular: regular rate and rhythym, no murmur, rub, or gallop, No edema Peripheral Pulses: 2+: dorsalis-pedis (R), dorsalis-pedis (L) Respiratory: reduced air movement Gastrointestinal: normoactive bowel sounds, soft, non-tender abdomen, no palpable masses Genitourinary: no bladder fullness, no bladder tenderness Skin: warm, normal color, no rashes or abrasions, no fluctuance, no induration, No mottled Musculoskeletal: full muscle strength, no muscle tenderness, normal joint ROM, no joint effusions Neurologic: sensation intact bilaterally Psychiatric: interacting appropriately, flat affect Lymph, Heme, Immunologic: no cervical LAD, no supraclavicular LAD Lab Data & Imaging Review 01/06/19 11:20 01/06/19 11:20 WBC 6.11 10^3/uL (3.80-9.50) 01/06/19 11:20 RBC 4.12 10^6/uL (4.18-5.33) L 01/06/19 11:20 Hgb 12.8 g/dL (12.6-16.3) 01/06/19 11:20 Hct 39.2 % (38.0-47.0) 01/06/19 11:20 MCV 95.1 fL (81.5-99.8) 01/06/19 11:20 MCH 31.1 pg (27.9-34.1) 01/06/19 11:20 MCHC 32.7 g/dL (32.4-36.7) 01/06/19 11:20 RDW 13.0 % (11.5-15.2) 01/06/19 11:20 Plt Count 174 10^3/uL (150-400) 01/06/19 11:20 MPV 13.1 fL (8.7-11.7) H 01/06/19 11:20 Neut % (Auto) 70.4 % (39.3-74.2) 01/06/19 11:20 Lymph % (Auto) 13.4 % (15.0-45.0) L 01/06/19 11:20 [place] % (Auto) 15.5 % (4.5-13.0) H 01/06/19 11:20 Eos % (Auto) 0.3 % (0.6-7.6) L 01/06/19 11:20 Baso % (Auto) 0.2 % (0.3-1.7) L 01/06/19 11:20 Nucleat RBC Rel Count 0.0 % (0.0-0.2) 01/06/19 11:20 Absolute Neuts (auto) 4.30 10^3/uL (1.70-6.50) 01/06/19 11:20 Absolute Lymphs (auto) 0.82 10^3/uL (1.00-3.00) L 01/06/19 11:20 Absolute Monos (auto) 0.95 10^3/uL (0.30-0.80) H 01/06/19 11:20 Absolute Eos (auto) 0.02 10^3/uL (0.03-0.40) L 01/06/19 11:20 Absolute Basos (auto) 0.01 10^3/uL (0.02-0.10) L 01/06/19 11:20 Absolute Nucleated RBC 0.00 10^3/uL (0-0.01) 01/06/19 11:20 Immature Gran % 0.2 % (0.0-1.1) 01/06/19 11:20 Immature Gran # 0.01 10^3/uL (0.00-0.10) 01/06/19 11:20 Sodium 136 mEq/L (135-145) 01/06/19 11:20 Potassium 4.2 mEq/L (3.5-5.2) 01/06/19 11:20 Chloride 102 mEq/L (97-110) 01/06/19 11:20 Carbon Dioxide 25 mEq/l (22-31) 01/06/19 11:20 Anion Gap 9 mEq/L (6-14) 01/06/19 11:20 BUN 16 mg/dL (7-23) 01/06/19 11:20 Creatinine 0.7 mg/dL (0.6-1.0) 01/06/19 11:20 Estimated GFR > 60 01/06/19 11:20 Glucose 109 mg/dL (70-100) H 01/06/19 11:20 Calcium 9.2 mg/dL (8.5-10.4) 01/06/19 11:20 Urine Color YELLOW 01/06/19 13:20 Urine Appearance HAZY 01/06/19 13:20 Urine pH 7.0 (5.0-7.5) 01/06/19 13:20 Ur Specific Seymour 1.012 (1.002-1.030) 01/06/19 13:20 Urine Protein NEGATIVE (NEGATIVE) 01/06/19 13:20 Urine Ketones NEGATIVE (NEGATIVE) 01/06/19 13:20 Urine Blood NEGATIVE (NEGATIVE) 01/06/19 13:20 Urine Nitrate NEGATIVE (NEGATIVE) 01/06/19 13:20 Urine Bilirubin NEGATIVE (NEGATIVE) 01/06/19 13:20 Urine Urobilinogen NEGATIVE EU (0.2-1.0) 01/06/19 13:20 Ur Leukocyte Esterase NEGATIVE (NEGATIVE) 01/06/19 13:20 Urine Glucose NEGATIVE (NEGATIVE) 01/06/19 13:20 Assessment & Plan Assessment: 73 y/o female w/hx of dementia presenting w/ 1-2 days worth of fatigue noted at breakfast time and limb spasms. Also reports was hallucinations, onset was today. Recently admitted w/ RLL PNA and abx-treated. Vital signs are the following: BP 133/77, pulse 78, resp 16, 36.5c, 97% RA. #Fatigue -Unknown etiology -TSH normal 2.070/LFTs pending -Possible JANAK; notified respiratory therapy to monitor o2 levels @ HS and nocturnal oximetry order placed -PT/OT to evaluate and treat -Appears poor PO intake w/dry mucous membrane; received 1L NS in ED and cont IVF x 1 bag #Limb spasms -Unwitnessed by ; notified by [facility] staff -Lab work unremarkable -TSH normal/LFTs pending #Query Pneumonia -Procalcitonin 0.04 -Treated w/Azithromycin + Ceftriaxone in ED -Asymptomatic; afebrile, no elevate white count, no cough, either infiltrate or atelectasis on images which leads me to believe atelectasis. -Will not continue abx at the moment; if becomes symptomatic, would consider initiating -Incentive spirometry -PT/OT to evaluate and treat #Alzheimer's -Moderate-severe progression of disease -Cont aricept Diet: Regular VTE ppx: Lovenox subq Code: Limited. No compressions or intubation Dispo: Admit to obs <Loi Wiley - Last Filed: 01/06/19 23:41> History and Physical - History of Present Illness Review of Systems Review of Systems: Physical Exam Physical Exam: Temp Pulse Resp BP Pulse Ox 36.8 C 82 16 121/61 H 91 L 01/06/19 23:15 01/06/19 23:15 01/06/19 23:15 01/06/19 23:15 01/06/19 23:15 Lab Data & Imaging Review 01/06/19 11:20 01/06/19 11:20 WBC 6.11 10^3/uL (3.80-9.50) 01/06/19 11:20 RBC 4.12 10^6/uL (4.18-5.33) L 01/06/19 11:20 Hgb 12.8 g/dL (12.6-16.3) 01/06/19 11:20 Hct 39.2 % (38.0-47.0) 01/06/19 11:20 MCV 95.1 fL (81.5-99.8) 01/06/19 11:20 MCH 31.1 pg (27.9-34.1) 01/06/19 11:20 MCHC 32.7 g/dL (32.4-36.7) 01/06/19 11:20 RDW 13.0 % (11.5-15.2) 01/06/19 11:20 Plt Count 174 10^3/uL (150-400) 01/06/19 11:20 MPV 13.1 fL (8.7-11.7) H 01/06/19 11:20 Neut % (Auto) 70.4 % (39.3-74.2) 01/06/19 11:20 Lymph % (Auto) 13.4 % (15.0-45.0) L 01/06/19 11:20 [place] % (Auto) 15.5 % (4.5-13.0) H 01/06/19 11:20 Eos % (Auto) 0.3 % (0.6-7.6) L 01/06/19 11:20 Baso % (Auto) 0.2 % (0.3-1.7) L 01/06/19 11:20 Nucleat RBC Rel Count 0.0 % (0.0-0.2) 01/06/19 11:20 Absolute Neuts (auto) 4.30 10^3/uL (1.70-6.50) 01/06/19 11:20 Absolute Lymphs (auto) 0.82 10^3/uL (1.00-3.00) L 01/06/19 11:20 Absolute Monos (auto) 0.95 10^3/uL (0.30-0.80) H 01/06/19 11:20 Absolute Eos (auto) 0.02 10^3/uL (0.03-0.40) L 01/06/19 11:20 Absolute Basos (auto) 0.01 10^3/uL (0.02-0.10) L 01/06/19 11:20 Absolute Nucleated RBC 0.00 10^3/uL (0-0.01) 01/06/19 11:20 Immature Gran % 0.2 % (0.0-1.1) 01/06/19 11:20 Immature Gran # 0.01 10^3/uL (0.00-0.10) 01/06/19 11:20 Sodium 136 mEq/L (135-145) 01/06/19 11:20 Potassium 4.2 mEq/L (3.5-5.2) 01/06/19 11:20 Chloride 102 mEq/L (97-110) 01/06/19 11:20 Carbon Dioxide 25 mEq/l (22-31) 01/06/19 11:20 Anion Gap 9 mEq/L (6-14) 01/06/19 11:20 BUN 16 mg/dL (7-23) 01/06/19 11:20 Creatinine 0.7 mg/dL (0.6-1.0) 01/06/19 11:20 Estimated GFR > 60 01/06/19 11:20 Glucose 109 mg/dL (70-100) H 01/06/19 11:20 Calcium 9.2 mg/dL (8.5-10.4) 01/06/19 11:20 Total Bilirubin 0.7 mg/dL (0.1-1.4) 01/06/19 11:20 Conjugated Bilirubin 0.1 mg/dL (0.0-0.5) 01/06/19 11:20 Unconjugated Bilirubin 0.6 mg/dL (0.0-1.1) 01/06/19 11:20 AST 28 IU/L (14-46) 01/06/19 11:20 ALT 28 IU/L (9-52) 01/06/19 11:20 Alkaline Phosphatase 70 IU/L (38-126) 01/06/19 11:20 Total Protein 6.2 g/dL (6.3-8.2) L 01/06/19 11:20 Albumin 4.1 g/dL (3.5-5.0) 01/06/19 11:20 Procalcitonin 0.04 ng/mL (0.02-0.10) 01/06/19 11:20 TSH 2.070 uIU/mL (0.465-4.680) 01/06/19 11:20 Urine Color YELLOW 01/06/19 13:20 Urine Appearance HAZY 01/06/19 13:20 Urine pH 7.0 (5.0-7.5) 01/06/19 13:20 Ur Specific Seym[place] 1.012 (1.002-1.030) 01/06/19 13:20 Urine Protein NEGATIVE (NEGATIVE) 01/06/19 13:20 Urine Ketones NEGATIVE (NEGATIVE) 01/06/19 13:20 Urine Blood NEGATIVE (NEGATIVE) 01/06/19 13:20 Urine Nitrate NEGATIVE (NEGATIVE) 01/06/19 13:20 Urine Bilirubin NEGATIVE (NEGATIVE) 01/06/19 13:20 Urine Urobilinogen NEGATIVE EU (0.2-1.0) 01/06/19 13:20 Ur Leukocyte Esterase NEGATIVE (NEGATIVE) 01/06/19 13:20 Urine Glucose NEGATIVE (NEGATIVE) 01/06/19 13:20 Assessment & Plan Assessment: I have assessed the patient along with Sandi Jordan nurse practitioner, and I agree with her assessment and plans is in the note above. My guess is that she probably has some central sleep apnea and is sleep deprived, though a broad differential exists. There are few clues with an essentially normal assessment here other than sleepiness
[2019-01-06] MEDS ORDERED: NS 1,000 ML IV SCH (15:30)
[2019-01-06] MEDS: DONEPEZIL HCL 5 MG TAB PO SCH ×2 (21:19→21:21)
[2019-01-07] MEDS: ENOXAPARIN 40 MG/0.4 ML SYR SC SCH (09:31)
[2019-01-07] MEDS: DONEPEZIL HCL 5 MG TAB PO SCH (09:32)
[2019-01-07] MEDS: FLUoxetine 20 MG CAP PO SCH (09:32)
--- NOTE | 2019-01-07 10:57 | HOSPPROG ---
Hospitalist Progress Note Assessment/Plan: DIAGNOSES: * Acute metabolic encephalopathy with decreased alertness, severe somnolence, mild increased confusion in a patient with advanced dementia * Central sleep apnea diagnosed by my bedside observations this morning * Use of VESIcare for very mild urinary incontinence; could be a contributing factor to her somnolence but she has been on this for months without prior difficulty * So far no signs of infection or organ dysfunction, normal TSH PLANS: * Will observe her oxygen saturations during sleep on 1 L nasal cannula oxygen this morning; if this seems consistently effective would recommend use of oxygen during sleep at night here and at her memory care unit * She should have formal sleep study done to be certain there is not an obstructive component but by my exam it looks like central apnea * After trialing her on oxygen this morning will trying keep her as awake as we can during the day to facilitate better quality sleep at night * Would keep her off of VESIcare as it sounds like she had minimal urinary incontinence issues prior to that and it can cause sleepiness * Will resume her Aricept * Will continue to observe for any signs of fever, infection or other illness that may be causing her acute change * Physical occupational therapy for safety assessment * Compound bleed discharge back to her memory care unit I spent greater than 35 min at bedside during my 1st visit with the patient and this morning SUBJECTIVE: The patient states she feels well but she is demented enough that it is really not likely that she could report symptoms that she would have The has noted no change in her decreased alertness or increased confusion from yesterday He states that she did eat breakfast this morning and was awake enough for that Respiratory therapy did observe her sleeping during the night and found hypoxia associated with sleep and trialed her on CPAP OBJECTIVE Vitals reviewed: Vital signs stable without fever Exam: Asleep as I enter the room and sleeps through my initial conversation with . I can arouse her and as long as I continue to engage her in conversation she stays awake,, but as soon as we stop conversing she goes right back to sleep. I do not see anything that looks like obstructive apnea watching her, however she very consistently runs oxygen saturation 89-91 during sleep and 93-95 during awake. I have placed her on 1 L nasal cannula at this time and she is maintaining notably higher oxygen saturations during sleep with that. skin warm dry color ok resps not labored lungs clear BSs heart regular abd soft nondistended nontender, bowel sounds present limbs warm, no edema iv site ok Objective: Vital Signs Temp Pulse Resp BP Pulse Ox 36.9 C 80 14 138/82 H 93 01/07/19 07:48 01/07/19 07:48 01/07/19 07:48 01/07/19 07:48 01/07/19 07:48 01/06/19 01/07/19 01/08/19 06:59 06:59 06:59 Intake Total 1575 Balance 1575 - Time Spent With Patient Time Spent with Patient: greater than 35 minutes Time Spent with Patient: Greater than 35 minutes spent on this patients care, greater than 50% of time spent counseling, educating, and coordinating care regarding the above mentioned plan. ICD10 Worksheet Patient Problems: Problems Problem Status Onset Fatigue Acute Pneumonia Acute
--- NOTE | 2019-01-07 14:04 | ASMTCMCOM ---
CM Note CM Note Notes: Pt was admtited with PNA and fatigue. She lives at [facility] in the memory care unit. Per her who also lives at [place] in independent living, pt was transferred to memory care about 2 months ago due to progression of her Alzheimer's Disease. She was here in 10/2018 for PNA. PT/OT have cleared pt and feel she is back to her baseline for ADLs. Anticipate pt will d/c back to [facility] when she is medically cleared. D/C plan: [facility] Memory Care Unit Date Signed: 01/07/2019 02:02 PM Electronically Signed By:EVA Edwards
[2019-01-08 08:53] VITALS: BP 115/71
[2019-01-08] MEDS: ENOXAPARIN 40 MG/0.4 ML SYR SC SCH (09:51)
[2019-01-08] MEDS: FLUoxetine 20 MG CAP PO SCH (09:51)
[2019-01-08] MEDS: DONEPEZIL HCL 5 MG TAB PO SCH (09:51)
--- NOTE | 2019-01-08 10:47 | PDIAF ---
- Diagnosis Diagnosis: weakness Code Status: Limited Resuscitation - Medication Management Discharge Medications: electronically signed and located in the Home Medication List. PICC Care - Routine: N/A - Orders Services needed: Registered Nurse Isolation Type: Droplet Isolation Diet Recommendation: no restrictions on diet - Follow Up Care Current Providers and Referrals: Tiffanie Flores MD [Primary Care Provider] - As per Instructions
--- NOTE | 2019-01-08 11:13 | ASDISCHSUM ---
Discharge Information Plan Status:Assisted Living Medically Cleared to Leave: Discharge Date: D/C Disposition:Assisted Living ADT D/C Disposition:Snf Facility Projected Discharge Date: Transportation at D/C: Discharge Delay Reason: Follow-Up Date: Discharge Slot: Final Diagnosis: Placement Information Patient Contact Information Contact Name:KACIEFITOSTEWART Relationship: Address:[address] [place] [address] Work Phone: [facility] Alternate Phone: State/Zip Code:[place] [address] Email: Financial Information Financial Class:Medicare Advantage Plans Primary Plan Desc:[facility] [employer] Primary Plan Number:[id number] Secondary Plan Desc: Secondary Plan Number: Assessment Information LACE LACE Length of stay for Answers: 2 days current admission Comorbidities - select Answers: Dementia all that apply Other Notes: HLD # of Emergency department Answers: 1-2 visits in the last 6 months Social determinants Answers: Mental health diagnosis (anxiety, depression, pers onality disorders, etc.) Score: 10 Date Signed: 01/08/2019 11:12 AM Electronically Signed By:Patt Frye [facility] CM Progress Note CM Note CM Note Notes: Pt was admtited with PNA and fatigue. She lives at [facility] in the memory care unit. Per her who also lives at [facility] in independent living, pt was transferred to memory care about 2 months ago due to progression of her Alzheimer's Disease. She was here in 10/2018 for PNA. PT/OT have cleared pt and feel she is back to her baseline for ADLs. Anticipate pt will d/c back to [facility] when she is medically cleared. D/C plan: [facility] Memory Care Unit Date Signed: 01/07/2019 02:02 PM Electronically Signed By:EVA Edwards Case Management Discharge Plan Note Case Management Discharge Discharge Order Complete? Answers: Yes Patient to Obtain Answers: Other Notes: Back to [place] Medications Transportation Arranged Answers: Family/Friends Family Notified Answers: Yes Notes: was in the pt room Discharge Comments Notes: CM met with pt and . is going to transport pt back to [facility] where they both live. CM gave RN the report number. Date Signed: 01/08/2019 11:12 AM Electronically Signed By:Patt Frye Intervention Information
--- NOTE | 2019-01-08 13:10 | GDS ---
[f rep st] DISCHARGE SUMMARY DISCHARGE DIAGNOSES: 1. Acute metabolic encephalopathy. 2. Essential sleep apnea. PHYSICAL EXAM: GENERAL: The patient is alert. VITAL SIGNS: Afebrile at 36.6, pulse is 79, respira tory rate 16, blood pressure is 115/71. She is saturating 96% on room air I. have seen and evaluate d the patient on the day of discharge. HOSPITAL COURSE: The patient is a 73-year-old female who lives at a memory care unit at [facility] to the emergency room with complaints of increased somnolence and fatigue. The patient does hav e severe Alzheimer dementia at baseline. She was evaluated during this hospitalization. No sources of infection were identified. There is potential that the patient's fatigue was secondary to either a viral process or potentially obstructive sleep apnea. The patient has responded well to nocturnal oxygen. She feels significantly better. Her feels that she is at her baseline. She will be discharged home to return to [facility] where she normally resides. I have not adjusted an y of the patient's previously prescribed home medications other than the discontinuation of her VESIc are, which could potentially be causing her increased acute encephalopathy. It is recommended she fo llow up with her primary care physician for potential nocturnal oxygen, which may be beneficial. It is also recommended that she have a sleep study if she is able to tolerate. There are no pending vanessa dies. I have discussed the patient's disposition with the pillowcase folder, who is in agreement the plan . I spent greater than 35 minutes in the care, coordination, and management of the patient's lourdes n. /[id number]/MODL
== END 2019-01-08 12:35 ==
LOC: INTOOBSV 14:34 → F3N 15:27
PROVIDERS: ADMIT Internal Medicine; ATTEND Internal Medicine
DX: G93.41 Metabolic encephalopathy (principal); Z85.3 Personal history of malignant neoplasm of breast; E78.5 Hyperlipidemia, unspecified; G30.9 Alzheimer's disease, unspecified; F02.80 Dementia in other diseases classified elsewhere, unspecified severity, without behavioral disturbance, psychotic disturbance, mood disturbance, and anxiety; G47.33 Obstructive sleep apnea (adult) (pediatric); E86.9 Volume depletion, unspecified
CPT/HCPCS: 71046; 96361; 96365; 96372; 97161; 97165; 99285; G0378; J0456; J0696; J1650